=== PATIENT | female | born 1955 | race African-American/Black ===

== ENCOUNTER 2016-08-29 10:19 | Emergency (ER) | payer SELFPAY ==
[2016-08-29] MEDS: ASPIRIN 81 MG CHEW TAB PO ONE (10:21)
[2016-08-29] MEDS: METOPROLOL TARTRATE 5 MG/5 ML VIAL IVP ONE ×2 (10:24→10:35)
[2016-08-29] MEDS: ONDANSETRON HCL/PF 4 MG/ 2ML VIAL IVP ONE (10:26)
[2016-08-29] MEDS ORDERED: ASPIRIN 81 MG CHEW TAB ONE (10:31)
[2016-08-29] MEDS ORDERED: NITROGLYCERIN 0.4 MG TAB.SUBL SL ONE ×2 (10:31→10:58)
[2016-08-29] MEDS ORDERED: ONDANSETRON HCL/PF 4 MG/ 2ML VIAL ONE (10:31)
[2016-08-29] MEDS ORDERED: CLOPIDOGREL BISULFATE 75 MG TABLET ONE (10:34)
[2016-08-29] MEDS ORDERED: METOPROLOL TARTRATE 5 MG/5 ML VIAL IVP ONE (10:34)
[2016-08-29] MEDS ORDERED: ENOXAPARIN SODIUM 100 MG/ML DISP.SYRIN SQ ONE (10:38)
[2016-08-29] MEDS ORDERED: ONDANSETRON HCL 4 MG TAB.RAPDIS PO PRN (10:39)
[2016-08-29] MEDS: NITROGLYCERIN 0.4 MG TAB.SUBL SL PRN (10:40)
[2016-08-29 10:42] LABS: BASOPHILS % 0.3 (0.0-1.5); EOSINOPHILS % 3.7 % (0.0-6.8); MEAN CORPUSCULAR HEMOGLOBIN 31.1 pg (28.0-34.0); MEAN CORPUSCULAR VOLUME 95.7 fl (80.0-100.0); MONOCYTES % 4.4 % (0.0-11.0); NEUTROPHILS # 5.8 # k/uL (1.4-7.7)
[2016-08-29] MEDS: ENOXAPARIN SODIUM 100 MG/ML DISP.SYRIN SQ ONE (10:43)
[2016-08-29] MEDS: CLOPIDOGREL BISULFATE 75 MG TABLET PO ONE (10:44)
[2016-08-29] MEDS ORDERED: MORPHINE SULFATE 2 MG/ML DISP.SYRIN ONE (10:49)
[2016-08-29 10:56] LABS: eGFR (African) > 60; eGFR (Non-African) > 60
--- NOTE | 2016-08-29 11:03 | ED Physician Documentation ---
Chest Pain - HISTORIAN Historian: patient - HPI Chief Complaint: Chest Pain Onset: hours Timing: sudden onset Duration: waxing, waning Last known Well Date: 08/29/16 Last Known Well Time: 02:00 Context: sleep Severity: severe Quality: pressure, aching Chest Pain Radiation: no radiation Chest Pain Signs/Symptoms: nausea, diaphoresis Worsened By: deep breaths (?) Relieved By: nothing Further Comments: yes (patient states that she was awoken by chest pain last noc about 3AM. Since that time pain has been coming and going. No precipitating factor noted. If she takes a deep breath or lays on her chest it may make it worse. Nothing seems to help. Pain became more severe and she came to the ED. Patient denies any other medical problems, no previous chest pain noted.) - ROS CONST: none. denies: fever - PAST HX [place] risk factors: no pertinent history. denies: hypertension, diabetes Type 2, hyperlipidemia, cardiac disease DVT/PE Risk Factors: none. denies: recent surgery, leg swelling, prior DVT GI disease: none Lung disease: none Surgeries/Procedures: hysterectomy Allergies/Adverse Reactions: Allergies Allergy/AdvReac Type Severity Reaction Status Date / Time No Known Allergies Allergy Verified 04/29/12 19:50 Home Medications: Ambulatory Orders Medication Instructions Recorded NK [NK] 09/14/12 - SOCIAL HX Smoking History: less than 1 pack/day Alcohol Use: rarely Drug Use: none - FAMILY HX Family HX: none - VITAL SIGNS Vital Signs: Vital Signs Temp Pulse Resp BP Pulse Ox 117/71 09/01/15 06:19 - REVIEWED ASSESSMENTS Nursing Assessment Reviewed: Yes Vitals Reviewed: Yes ED Results Lab/Radiology - Orders Orders: ED Orders Category Date Time Status Continuous EKG monitoring Q30M Care 08/29/16 10:28 Ordered Continuous Pulse Oximetry Q30M Care 08/29/16 10:28 Ordered CHEST 1 VIEW [RAD] Stat Exams 08/29/16 10:28 Ordered CBC/PLATELET/DIFF Routine Lab 08/29/16 10:28 Ordered CMP Routine Lab 08/29/16 10:28 Ordered TROPONIN I (cTnI) Stat Lab 08/29/16 10:28 Ordered Aspirin Med 08/29/16 10:31 Discontinued 324 mg .ROUTE .STK-MED ONE Aspirin Med 08/29/16 10:28 Once 324 mg PO NOW ONE Clopidogrel Bisulfate [Plavix] Med 08/29/16 10:34 Discontinued 675 mg .ROUTE .STK-MED ONE Metoprolol Tartrate [Toprol] Med 08/29/16 10:34 Discontinued 15 mg IVP .STK-MED ONE Nitroglycerin [Nitroquick] Med 08/29/16 10:28 Ordered 0.4 mg SL Q5M PRN Ondansetron HCl/Pf [Zofran 4 mg/2 ml] Med 08/29/16 10:31 Discontinued 4 mg .ROUTE .STK-MED ONE Oxygen Daily Oxygen 08/29/16 10:30 Ordered EKG WITH COMPARISON Stat Ther 08/29/16 10:28 Ordered Chest Pain Physical Exam - EXAM General Appearance: severe distress, anxious EENT: pharynx normal Neck: nml inspection, no carotid bruit, JVD present Respiratory: no resp. distress, chest non-tender, nml breath sounds. No: wheezes, rales, rhonchi CVS: reg. rate & rhythm, no murmur Abdomen: soft, no organomegaly, normal bowel sounds, no abdominal bruit, no distension, other (obesese) Extremities: non-tender, no edema. No: tenderness Neuro: oriented X3, mood/affect nml, cognition normal Discharge Clincal Impression: STEMI (ST elevation myocardial infarction) Referrals: Primary Doctor,No [Primary Care Provider] - 2 Days Home Medications: Ambulatory Orders NK [NK] 09/14/12 Condition: Stable Disposition: 02 XFER SHT-TRM HOSP Decision to Admit: [id number] Date of Decison to Admit: 08/29/16 Decision Time: 10:20
[2016-08-29] MEDS: MORPHINE SULFATE 2 MG/ML DISP.SYRIN IVP ONE (11:27)
[2016-08-29 11:36] VITALS: BP 145/87
--- NOTE | 2016-08-29 13:49 | Diagnostic Imaging Report ---
[facility] [place] [address] [facility] [address] Report Submission Date: Aug 29, 2016 10:47:19 AM CDT Patient Study Name: GIN ROSENBERG Date: Aug 29, 2016 10:31:26 AM CDT Modality Type: CR Gender: F Description: CHEST : 59 Institution: [facility] [place] Physician KAYKAY MCGRAW - ER Chest -one view CLINICAL HISTORY: Chest pain. FINDINGS: Examination of the chest single portable AP view 08/29/2016 1031 hr with no prior film for comparison demonstrates the lungs to be hypoventilated but clear. Cardiac silhouette is prominent and the aorta is atherosclerotic. Monitor leads superimpose the chest. Calcification is seen adjacent to the right humeral head consistent with calcific tendinitis. Degenerative changes are seen in the shoulders. IMPRESSION: Hypoventilation. Aortic atherosclerosis and left ventricular prominence. Calcific tendinitis in the right shoulder. Electronically signed on Aug 29, 2016 10:47:19 AM CDT by: Samuel CAMILO
== END 2016-08-29 10:45 | disposition short-term general hospital (02) ==
LOC: ED 10:19
DX: I21.3 ST elevation (STEMI) myocardial infarction of unspecified site (principal)
CPT/HCPCS: 71010; 80053; 84484; 85025; J1650; J2270; J2405; J3490; 96374; 96375; 99284; S1016